=== PATIENT | female | born 1980 | race Caucasian/White ===

== ENCOUNTER 2022-11-16 19:57 | Emergency (ER) | payer BC, SELFPAY ==
--- NOTE | ~2022-11-16 | XR_ITS ---
EXAMINATION: XR chest 2V Exam Date/Time: 11/16/2022 20:13 [employer] APPLICATION DEVELOPER HISTORY: chest pain, sob, fever Comparison: None available. RESULT: Lines, tubes, and devices: None. Lungs and pleura: Clear. Calcified right midlung granuloma. Cardiomediastinal silhouette: Normal. Calcified hilar nodes. Other: No acute osseous or upper abdominal finding. IMPRESSION: No acute cardiopulmonary process. Reviewed, dictated and finalized at location K. OP APPLICATION DEVELOPER
[2022-11-16 20:09] VITALS: BP 119/81; PULSE 88; RESP 16; TEMP 36.9; O2SAT 99
[2022-11-16 20:13] VITALS: BP 119/81; PULSE 88; RESP 16; TEMP 36.9; O2SAT 99
--- NOTE | 2022-11-16 20:17 | ED.GENADULT ---
HPI - General Adult General Chief complaint: Upper Respiratory Infection Stated complaint: uri Time Seen by Provider: 11/16/22 19:59 Source: patient Mode of arrival: ambulatory Limitations: no limitations History of Present Illness HPI narrative: Patient presents for evaluation of sick symptoms. She initially experienced some nausea and vomiting on Thursday of last week. Her symptoms improved last night she developed fever of 103.8, cough, sore throat, shortness of breath, body aches, and headache. She had some sternal and left lower rib pain earlier but now states that her chest feels tight. No recent sick contacts to her knowledge. She took a home COVID test which was negative. She had COVID in 2019. She has tried some tylenol and motrin for her symptoms. She does not smoke. Related Data Home Medications Medication Instructions Recorded Confirmed norgestimate-ethinyl estradiol 1 tablet PO DAILY 11/16/22 11/16/22 0.18 mg/0.215mg/0.25mg-35 mcg(28)tablet (Tri-Sprintec (28)) propranolol 60 mg capsule,24 60 mg PO DAILY 11/16/22 11/16/22 hr,extended release Allergies Allergy/AdvReac Type Severity Reaction Status Date / Time No Known Allergies Allergy Verified 11/16/22 20:13 Review of Systems Review of Systems: CONSTITUTIONAL: Reports fever and fatigue. Denies chills EYES: Denies visual changes, redness, or discharge. ENT: Reports sore throat. Denies rhinorrhea or sinus congestion CARDIOVASCULAR: Reports chest pain earlier, now resolved. Reports chest tightness. Reports palpitations, or edema. RESPIRATORY: Reports cough and SOB GASTROINTESTINAL: Reports nausea and vomiting. Denies diarrhea GENITOURINARY: Denies dysuria or hematuria. SKIN: Denies rash or itching. MUSCULOSKELETAL: Reports generalized body NEUROLOGIC: Reports headache numbness, dizziness, or weakness. PSYCHIATRIC: Denies anxiety or depression. [facility] Past Medical History Medical History (Updated 11/16/22 @ 20:39 by Simone Angel, TRAVIS, CHRISTOPHER) Migraine Surgical History Surgical History No pertinent past surgical history Family History Family History Mother Hypertension Social History Social History Smoking status: Never smoker Substance use: never Living arrangements: with family Additional occupation/education comments: teacher Gender identity (if verbalized by the patient): Female Sexual Orientation (if Verbalized by the Patient): Straight or Heterosexual Spiritual care concerns: No Exam Narrative: GENERAL: Appears slightly ill but nontoxic. HEAD: Normocephalic, atraumatic. EYES: PERRLA and EOMI. ENT: Nares clear, no rhinorrhea or epistaxis. Mucous membranes moist. Oropharynx without tonsillar hypertrophy exudate or other lesions. Bilateral TMs pearly trammell nonbulging NECK: Supple. No adenopathy or masses. No carotid bruits or JVD CHEST: Clear to auscultation. No respiratory distress. No wheezes rales or rhonchi HEART: Regular rate and rhythm. No murmur heard. Normal peripheral pulses. ABDOMEN: Soft, nontender, nondistended, normal active bowel sounds. EXTREMITIES: Normal range of motion. No edema. SKIN: Warm, dry, no rash. NEURO: No focal deficits. Alert and oriented x3. PSYCH: Normal mood and affect. Course Course Emergency Course: This is a 42-year-old female who presented for evaluation sick symptoms. influenza A positive. COVID negative. Throat culture pending. Chest x-ray normal. Will treat with Tamiflu. Increase hydration. [id number] agents for symptom management. Follow up with primary provider. Go to the ER for difficulty breathing. Patient in agreement plan care. Level of Care: Express Care Visit Vital Signs Vital signs: Vital Signs Temperature 36.9 C 11/16/22 20:09 Pulse Rat
== END 2022-11-16 20:42 | disposition home or self-care (01) ==
PROVIDERS: Emergency Provider Nurse Practitioner; PCP Internal Medicine
DX: J10.1 Influenza due to other identified influenza virus with other respiratory manifestations (principal); Z86.16 Personal history of COVID-19
CPT/HCPCS: 71046; 87081; 87426; 87804; 99213; C9803; G0463